=== PATIENT | female | born 1930 | race African-American/Black ===

== ENCOUNTER 2018-08-21 19:52 | Emergency (ER) | payer MEDICARE, BC, OTHER ==
[~2018-08-21 19:52] MED LIST: ASPI325T6 PO; COLACE 100100 MG/CAP PO; COZAAR100 MG PO; IMDUR 30MG30 MG/TAB PO; LOPRESSOR 550 MG/TAB PO; PLAVIX 75MG TAB75 MG PO; PRIL40 PO; PROCARDIA XL 3030 MG PO; TYLENOL 325MG325 MG PO; ZOCOR 20MG20 MG PO; ZYLOPRIM 300MG300 MG PO
[2018-08-21 19:59] VITALS: TEMP 98
[2018-08-21] MEDS ORDERED: LASIX 20MG TABL20 MG PO (20:16)
[2018-08-21 20:44] LABS: BASO % 0.5 % (0.0-2.0); EOS # 0.1 (0.0-0.7); EOS % 1.6 % (0-4.0); GRAN % 71.5 % (42.2-75.2); HEMATOCRIT 42.3 % (37.0-47.0); HEMOGLOBIN 13.6 g/dl (12.5-16.0); LYMPH # 1.1 (1.2-3.4); MEAN CELL VOLUME 100 fl (80.0-100.0); MEAN CORPUSCULAR HEMOGLOBIN 32 pg (27.0-31.0); MEAN CORPUSCULAR HGB CONC 32 g/dl (33.0-37.0); MEAN PLATELET VOLUME 10.5 fl (7.4-10.4); MONO # 0.4 (0.1-0.6); PLATELET COUNT 181 K/mm3 (130-400); RED BLOOD COUNT 4.25 M/mm3 (4.10-5.30); REDCELL DISTRIBUTION WIDTH-CV 15.1 % (11.5-14.5)
[2018-08-21 21:11] LABS: ALANINE AMINOTRANSFERASE < 6 U/L (9-52); ALBUMIN 4.4 gm/dL (3.5-5.0); ALKALINE PHOSPHATASE 105 U/L (50-136); ANION GAP 13 mmol/L (7-16); AST,SGOT 28 U/L (15-37); BILIRUBIN,TOTAL 0.9 mg/dL (0.0-1.0); BLOOD UREA NITROGEN 45 mg/dL (7-17); CARBON DIOXIDE 23 mmol/L (22-30); CHLORIDE 106 mmol/L (98-107); CREATINE KINASE 79 U/L (30-135); GLUCOSE 163 mg/dL (74-106); LIPASE 141 U/L (23-300); POTASSIUM 4.2 mmol/L (3.4-5.0); SODIUM 142 mmol/L (137-145); TOTAL PROTEIN 8.6 gm/dL (6.4-8.2)
[2018-08-21 21:13] LABS: INR 1.1 (0.8-3.0); PROTHROMBIN TIME 12.3 SECONDS (9.7-12.8)
[2018-08-21 21:22] LABS: TROPONIN-I 0.034 ng/mL (0.000-0.035)
[2018-08-21 22:15] VITALS: BP 152/79; PULSE 74
== END 2018-08-21 22:30 | disposition left against medical advice (07) ==
LOC: COL.ER 19:52
PROVIDERS: Emergency Medicine
DX: R55 Syncope and collapse (principal); K21.9 Gastro-esophageal reflux disease without esophagitis; I25.10 Atherosclerotic heart disease of native coronary artery without angina pectoris; I10 Essential (primary) hypertension; Z95.1 Presence of aortocoronary bypass graft; Z90.49 Acquired absence of other specified parts of digestive tract
CPT/HCPCS: J7030